=== PATIENT | female | born 1965 | race Caucasian/White ===

== ENCOUNTER 2021-12-26 09:44 | Emergency (ER) | payer MEDICAID ==
[2021-12-26 10:05] VITALS: BP 149/83; PULSE 80
== END 2021-12-26 10:47 | disposition home or self-care (01) ==
LOC: CC.ED 09:44
DX: R07.81 Pleurodynia (principal); E11.9 Type 2 diabetes mellitus without complications; Z88.8 Allergy status to other drugs, medicaments and biological substances; Z79.4 Long term (current) use of insulin; Z79.84 Long term (current) use of oral hypoglycemic drugs
CPT/HCPCS: 71101-RT; 99283; 99284